=== PATIENT | male | born 1950 | race Caucasian/White ===

== ENCOUNTER → 2020-04-09 | Outpatient (CLI) | payer MEDICARE, OTHER ==
--- NOTE | 2020-04-09 18:39 | XCELERA REPORT ---
[address] [address] Transthoracic Echocardiogram Report Name: CELIA ENNIS Age: 69 yrs Gender: Male : 1950 Patient Status: Outpatient Patient Location: Study Date: 04/09/2020 10:15 AM Height: 70 in Weight: 168 lb BSA: 1.9 m2 Procedure: A complete two-dimensional transthoracic echocardiogram was performed (2D, M-mode, spectral and color flow Doppler). The study was technically adequate with some images being suboptimal in quality. Reason For Study: HTN Ordering Physician: LINDA BEJARANO Performed By: Capri Martinez Interpretation Summary LEFT VENTRICLE: LV Systolic function: LVEF is felt to be within normal limits. Best estimate is approximately LVEF is 60 %. LV Diastolic Function: Grade II diastolic dysfunction noted. Wall motion : No definite regional wall motion abnormalities are noted. Left ventricular chamber size : is within normal limit. Left ventricular wall thickness : is increased indicative of borderline LVH. INTERVENTRICULAR SEPTUM: no evidence of VSD noted. No asymmetric hypertrophy noted. RIGHT VENTRICLE: RV systolic function : is felt to be within normal limit. Right Ventricle Size : WNL. LEFT ATRIUM size : mildly dilated. RIGHT ATRIUM size : is within normal limit. INTER ATRIAL SEPTUM : No definite atrial septal defect noted however a small PFO could be missed. AORTIC ROOT : seems to be within normal limits. Ascending aorta is not well visualized. INFERIOR VENA CAVA: was not well visualized. VALVES: MITRAL VALVE : Leaflets are mildly thickened. Mobility seems to be within normal limits. Mitral Regurgitation : Trace mitral regurgitation is noted. Mitral Stenosis: No mitral stenosis noted. Mitral valve prolapse : none noted. AORTIC VALVE: seems to be trileaflet with thickening but adequate excursion. Aortic stenosis : No aortic stenosis noted. Aortic regurgitation : No aortic incompetence noted. TRICUSPID VALVE : mobility and structures within normal limit. Tricuspid stenosis : no tricuspid stenosis noted. Tricuspid regurgitation : Trace tricuspid regurgitation noted. Estimated RVSP : tricuspid jet envelope not well defined to measure RV systolic pressure accurately. PULMONARY VALVE : was not well visualized but no significant abnormalities suspected. Pulmonary stenosis : no significant pulmonary stenosis noted. Pulmonary regurgitation : no significant pulmonary regurgitation noted. MASSES AND THROMBUS : No definite intracardiac thrombus or masses are noted. PERICARDIUM: No pericardial effusion was noted. IMPRESSION : 1. Normal LVEF. 2. Borderline LVH noted. 3. Grade II Diastolic Dysfunction noted. 4. No significant valvular stenosis or regurgitation noted. MMode/2D Measurements & Calculations RVDd: 2.2 cm LVIDd: 5.5 cm FS: 32.9 % Ao root diam: IVSd: 1.1 cm LVIDs: 3.7 cm EDV(Teich): 3.4 cm 148.6 ml Ao root area: LVPWd: 0.99 cm ESV(Teich): 9.0 cm2 58.3 ml EF(Teich): 60.7 % EDV(MOD-sp4): SV(MOD-sp4): 107.4 ml 51.8 ml ESV(MOD-sp4): 55.6 ml EF(MOD-sp4): 48.2 % Doppler Measurements & Calculations MV E max uziel: MV dec slope: Ao V2 max: LV V1 max P.7 cm/sec 126.0 cm/sec 4.6 mmHg MV A max uziel: 151.0 cm/sec2 Ao max PG: LV V1 mean P.1 cm/sec MV dec time: 0.30 sec 6.3 mmHg 2.1 mmHg MV E/A: 0.83 Ao V2 mean: LV V1 max: 86.2 cm/sec 107.4 cm/sec Ao mean PG: LV V1 mean: 3.4 mmHg 67.5 cm/sec Ao V2 VTI: 29.9 cmLV V1 VTI: 22.9 cm PA V2 max: TR max uziel: 82.8 cm/sec 243.0 cm/sec PA max P.7 mmHgTR max P.6 mmHg : LINDA BEJARANO Shyamal
== END ==
LOC: SP 09:57
PROVIDERS: ATTEND Physician Assistant
DX: I10 Essential (primary) hypertension (principal)
CPT/HCPCS: 93306